=== PATIENT | male | born 1950 ===

== ENCOUNTER 2019-04-10 07:40 | Emergency (ER) | payer MEDICARE ==
[2019-04-10 08:05] VITALS: BP 160/88
[2019-04-10] MEDS ORDERED: Lidocaine 2.5%/Prilocain 2.5%* 5 GM TUBE TOPICAL ONE (08:28)
--- NOTE | 2019-04-10 08:57 | UC ---
General HPI - HPI Summary HPI Summary: Pleasant 68 yo gentleman c/o possible tick in post L knee. Yesterday was mowing lawn. Showered this am, noted funny feeling behind knee. Doesn't have anyone else to look at it, so came here. Otherwise w/o complaints. - History of Current Complaint Chief Complaint: UCBiteInjury Stated Complaint: SKIN CONCERN-TICK Time Seen by Provider: 04/10/19 08:28 Hx Obtained From: Patient Pain Intensity: 0 - Allergy/Home Medications Allergies/Adverse Reactions: Allergies Allergy/AdvReac Type Severity Reaction Status Date / Time peanut Allergy "Rash, Verified 04/10/19 08:00 Swell Up, Can't Breathe" Home Medications: Home Medications Lisinopril TAB* [Prinivil TAB*] 2.5 mg PO DAILY 04/10/19 [History Confirmed ] Potassium Citrate (NF) [Urocit-K 10 (NF)] 10 meq PO DAILY 04/10/19 [History Confirmed 04/10/19] Simvastatin TAB(NF) [Zocor(NF)] 5 mg PO DAILY 04/10/19 [History Confirmed ] Vitamin THERAPEUTIC TAB* [Theragran TAB*] 1 tab PO DAILY 04/10/19 [History Confirmed 04/10/19] PMH/Surg Hx/FS Hx/Imm Hx Previously Healthy: Yes - Surgical History Surgical History: Yes Surgery Procedure, Year, and Place: 15 YR AGO ACHILLES TENDON REPAIR- [facility]. 2009 REMOVAL OF CYST LEFT INDEX [facility]. LITHROTRIPSY - Family History Known Family History: Positive: Unknown - Social History Alcohol Use: Rare Substance Use Type: None Smoking Status (MU): Never Smoked Tobacco Review of Systems All Other Systems Reviewed And Are Negative: Yes Constitutional: Positive: Negative Skin: Positive: Other - see hpi Eyes: Positive: Negative ENT: Positive: Negative Respiratory: Positive: Negative Cardiovascular: Positive: Negative Gastrointestinal: Positive: Negative Genitourinary: Positive: Negative Motor: Positive: Negative Neurovascular: Positive: Negative Musculoskeletal: Positive: Negative Neurological: Positive: Negative Psychological: Positive: Negative Is Patient Immunocompromised?: No Physical Exam Triage Information Reviewed: Yes Appearance: Well-Nourished Vital Signs: Initial Vital Signs Temp 98.5 F 04/10/19 07:58 Pulse 70 04/10/19 07:58 Resp 16 04/10/19 07:58 BP 160/88 04/10/19 07:58 Pulse Ox 98 04/10/19 07:58 Vital Signs Reviewed: Yes Eye Exam: Normal - grossly normal ENT Exam: Normal - grossly normal Neck exam: Normal Respiratory Exam: Normal - RR normal, no dyspnea, no tachypnea Cardiovascular Exam: Normal - HR normal, nondiaphoretic Abdominal Exam: Normal - grossly benign Musculoskeletal Exam: Normal - gait steady Neurological Exam: Normal - grossly nonfocal Psychological Exam: Normal - nad Skin Exam: Normal - normal except mild dry skin patch post left knee. Upon close light micro exam, no visible tick or tick part appreciated. No redness. Course/Dx - Course Course Of Treatment: REviewed coa / tx plan. May consider otc hydrocortisone if itchy, but he usually uses jergens with relief. Questions as posed answered to the best of my ability. - Diagnoses Provider Diagnosis: Dermatitis Discharge - Sign-Out/Discharge Documenting (check all that apply): Patient Departure All imaging exams completed and their final reports reviewed: No Studies - Discharge Plan Condition: Stable Disposition: HOME Patient Education Materials: Dermatitis (ED) Referrals: Mayo Gaston MD [Primary Care Provider] - Additional Instructions: Follow up with your doctor, per routine. Seek medical attention for worse or new problems in the meantime. - Billing Disposition and Condition Condition: STABLE Disposition: Home
== END 2019-04-10 08:49 | disposition home or self-care (01) ==
LOC: UCCORT 07:40
DX: L30.9 Dermatitis, unspecified (principal); Z79.899 Other long term (current) drug therapy
CPT/HCPCS: 99211; A9270-GY; G0463